=== PATIENT | male | born 1990 | race African-American/Black ===

== ENCOUNTER 2018-04-08 22:03 | Emergency (ER) | payer OTHER ==
[2018-04-08 22:26] VITALS: BP 109/57; PULSE 61; TEMP 98.4; BMI 22.4
--- NOTE | 2018-04-08 23:30 | PDOC ---
History of Present Illness - General Chief Complaint: Back Pain Stated Complaint: BACK PAIN Time Seen by Provider: 04/08/18 23:02 History Source: Patient - History of Present Illness Initial Comments: 04/09/18 01:58 27-year-old male lower back pain for one half weeks after picking up heavy boxes at work. Patient denies numbness or tingling to his lower extremity, incontinence of bowel or urine. Patient reports that the pain has been worse over the last couple of days Past History - Past Medical History Allergies/Adverse Reactions: Allergies Allergy/AdvReac Type Severity Reaction Status Date / Time No Known Allergies Allergy Verified 04/08/18 22:20 Home Medications: Ambulatory Orders Ibuprofen [Motrin -] 600 mg PO QID PRN #20 tablet 04/09/18 - Suicide/Smoking/Psychosocial Hx Smoking History: Current every day smoker Have you smoked in the past 12 months: Yes Number of Cigarettes Smoked Daily: 10 Information on smoking cessation initiated: No Hx Alcohol Use: No Drug/Substance Use Hx: Yes *Physical Exam - Vital Signs Last Vital Signs Temp Pulse Resp BP Pulse Ox 98.4 F 61 18 109/57 99 04/08/18 22:20 04/08/18 22:20 04/08/18 22:20 04/08/18 22:20 04/08/18 22:20 - Physical Exam General Appearance: Yes: Appropriately Dressed Respiratory/Chest: positive: Lungs Clear, Normal Breath Sounds Musculoskeletal: positive: Muscle Spasm, Vertebral Tenderness (lumbar area) Extremity: positive: Normal Capillary Refill, Normal Inspection, Normal Range of Motion Integumentary: positive: Normal Color, Dry, Warm Neurologic: positive: Fully Oriented, Alert, Normal Mood/Affect *DC/Admit/Observation/Transfer Diagnosis at time of Disposition: Low back pain Qualifiers: Chronicity: acute Back pain laterality: bilateral Sciatica presence: without sciatica Qualified Code(s): M54.5 - Low back pain - Discharge Dispostion Disposition: HOME - Prescriptions Prescriptions: Ibuprofen [Motrin -] 600 mg PO QID PRN #20 tablet PRN Reason: Back Pain - Referrals Referrals: Nerissa Horton [Primary Care Provider] - Jose Duque MD [Staff Physician] - - Patient Instructions Printed Discharge Instructions: Low Back Pain Additional Instructions: please follow up with orthopedic doctor as soon as possible take ibuprofen as prescribed. follow up with your doctor as soon as possible. - Post Discharge Activity Forms/Work/School Notes: Back to Work
[2018-04-09] MEDS ORDERED: KETOROLAC TROMETHAMINE 30 MG/1 ML VIAL IM ONE (00:26)
[2018-04-09] MEDS ORDERED: KETOROLAC TROMETHAMINE 30 MG/1 ML VIAL ONE (00:58)
[2018-04-09 01:22] LABS: URINE APPEARANCE SLCLOUDY; URINE BILIRUBIN NEGATIVE (<2.0 mg/dL); URINE COLOR YELLOW; URINE GLUCOSE (UA) NEGATIVE (NEGATIVE); URINE KETONE NEGATIVE (NEGATIVE); URINE NITRITE NEGATIVE (NEGATIVE); URINE PROTEIN NEGATIVE (NEGATIVE); URINE UROBILINOGEN 4.0 E.U/dl mg/dL (0.2-1.0)
[2018-04-09 01:26] LABS: URINE LEUK ESTERASE 1+ (NEGATIVE)
[2018-04-09 01:36] LABS: EPI CELLS RARE /HPF (FEW); URINE MUCUS MANY
== END 2018-04-09 02:40 | disposition home or self-care (01) ==
LOC: JER 22:03 → JERFT 22:03 → JER 04-09 02:40
PROC: 3E0233Z Introduction of Anti-inflammatory into Muscle, Percutaneous Approach (ICD-10-PCS; principal; 2018-04-08)
DX: S39.82XA Other specified injuries of lower back, initial encounter (principal); X50.0XXA Overexertion from strenuous movement or load, initial encounter; Y93.89 Activity, other specified; Y92.69 Other specified industrial and construction area as the place of occurrence of the external cause; Y99.0 Civilian activity done for income or pay
CPT/HCPCS: 72100-TC-FY; 81003; 81015; 87086; 99282-25

== ENCOUNTER 2024-06-14 10:43 | Emergency (ER) | payer OTHER ==
[2024-06-14 10:50] VITALS: BP 125/75; PULSE 57; RESP 18; TEMP 97.5; BMI 20.5
[2024-06-14] MEDS ORDERED: KETOROLAC TROMETHAMINE 30 MG/1 ML VIAL ONE (11:45)
[2024-06-14] MEDS ORDERED: ACETAMINOPHEN 500 MG TABLET (FP) ONE (11:45)
[2024-06-14] MEDS ORDERED: LIDOCAINE 4% PATCH TP ONE (11:45)
[2024-06-14] MEDS: KETOROLAC TROMETHAMINE 30 MG/1 ML VIAL IM ONE (11:54)
[2024-06-14] MEDS: ACETAMINOPHEN 500 MG TABLET (FP) PO ONE (11:55)
[2024-06-14] MEDS: LIDOCAINE 4% PATCH TP ONE (11:55)
[2024-06-14] MEDS ORDERED: LIDOCAINE PATCH REMOVAL MC ONE (22:00)
== END 2024-06-14 12:19 | disposition home or self-care (01) ==
LOC: JERFT 10:43
PROC: 3E0233Z Introduction of Anti-inflammatory into Muscle, Percutaneous Approach (ICD-10-PCS; principal; 2024-06-14)
DX: M54.41 Lumbago with sciatica, right side (principal)
CPT/HCPCS: 96372; 99284-25